=== PATIENT | male | born 1960 | race Caucasian/White ===

== ENCOUNTER 2019-06-05 16:33 | Inpatient (IN) | payer MEDICAID ==
[~2019-06-05] VITALS: Ht 177.8 cm; Wt 99.2 kg
[2019-06-05] MEDS ORDERED: ACETAMINOPHEN500 M1 PO (20:03)
[2019-06-05] MEDS ORDERED: HYDROCODON-ACE1 EAC7 PO (20:04)
[2019-06-05] MEDS ORDERED: LOVENOX30 MG/0.3 SC (20:05)
[2019-06-05] MEDS ORDERED: DULCOLAX5 MG PO (20:05)
[2019-06-05] MEDS ORDERED: SODIUM CL 0.91000 ML IV (20:08)
[2019-06-05] MEDS ORDERED: PEPCID INJ20 MG/2 ML (20:10)
[2019-06-05] MEDS ORDERED: MORPHINE 44 MG/1 M1 IV (20:13)
[2019-06-05] MEDS ORDERED: PROCHLORPERAZ5 MG/M1 IM (20:14)
[2019-06-05] MEDS ORDERED: VANCOMYCIN 500500 MG IV (20:15)
[2019-06-05] MEDS ORDERED: ZOSYN 2.25 GM2.25 G1 IV (20:21)
[2019-06-05] MEDS ORDERED: HYDROCORTISO28.35 G1 TOPICAL (20:28)
[2019-06-05 21:00] VITALS: BP 162/74; BMI 30.9
--- NOTE | 2019-06-05 22:43 | NUR ---
ARRIVE TO FLOOR AT 1915 ON STRETCHER ACCOMPANIED BY EMS AND SISTER. TRANSFERED SELF TO BED. ALERT AND ORIENTED X4. UP AD CLAUDE TO B/R. IV TO LEFT AC SL..SWOLLEN AREA TO RIGHT SIDE OF NECK. STATED "THAT'S WERE THEY PUT MY RADIATION IN. STATES THROAT IS SORE AND HAS A PROBLEM SWALLOWING. PAGED DR. CUNHA AND MARY LOU CASTAÑEDA RETURN CALL AND STATED SHE WOULD NOTIFY DR. CUNHA. NO RETURN CALL FROM DR. CUNHA AT THIS TIME. PT STATES HE IS A DNR. WILL PLACE PAER FROM [facility] IN CHART AND FILL OUT OUR NO CODE PAPER.REQUESTED A SPRITE. LEMON COWLITZ OFFERED AND ACCEPTED. SISTER TO STAY AT BEDSIDE. DENIES ANY NEEDS AT THIS TIME.
[2019-06-06 04:45] VITALS: BP 132/49
[2019-06-06 06:17] LABS: HEMATOCRIT 25.7 % (42.0-54.0); HEMOGLOBIN 9.1 g/dL (13.5-17.5); MCH 30.2 pg (26.0-34.0); MCHC 35.4 g/dL (31.0-37.0); MCV 85.4 fL (80.0-100.0); MEAN PLATELET VOLUME 8.7 fL (7.4-10.4); PLATELET COUNT 193 10x3/uL (130-400); RBC 3.01 10x6/uL (4.20-6.10); RDW 14.4 % (11.5-14.5); WBC 3.6 10x3/uL (4.8-10.8)
[2019-06-06 06:42] LABS: ALBUMIN 2.5 g/dL (3.4-5.0); ANION GAP 14.6 mmol/L (8-16); BILIRUBIN - TOTAL 0.54 mg/dL (0.2-1.3); CALCIUM 7.8 mg/dL (8.5-10.1); CARBON DIOXIDE 24.2 mmol/L (21.0-32.0); MAGNESIUM - SERUM 1.8 mg/dL (1.8-2.4); PHOSPHOROUS 3.3 mg/dL (2.5-4.9); PROTEIN - SERUM 5.6 g/dL (6.4-8.2)
[2019-06-06 06:45] LABS: POTASSIUM - SERUM 2.8 mmol/L (3.5-5.1)
--- NOTE | 2019-06-06 07:48 | NUR ---
REPORT RECEIVED FROM DENTAL HYGIENE PROFESSOR ANDPATIENT CARE ASSUMED. PATIENT SITTING UP IN BED AWAKE, ALERT AND ORIENTED X 4. PATIENT DENIES ANY NEEDS OR PAIN. WILL CONTINUE WITH PLAN OF CARE. FAMILY MEMBER AT BS. SR UP X 2 BED IN LOW POSITION AND CALL LIGHT IN REACH.
[2019-06-06 08:25] LABS: APPEARANCE CLEAR (CLEAR); BILIRUBIN NEGATIVE (NEGATIVE); COLOR YELLOW (YELLOW); GLUCOSE NEGATIVE (NEGATIVE); KETONE NEGATIVE (NEGATIVE); NITRITE NEGATIVE (NEGATIVE); PROTEIN 2+ mg/dL (NEGATIVE); UROBILINOGEN NORMAL (NORMAL)
[2019-06-06 08:26] LABS: BACTERIA FEW /hpf (NEGATIVE); EPITHELIAL CELLS 0-5 /hpf (0-5); RED CELLS - URINE OCC /hpf (0-5); WHITE CELLS - URINE RARE /hpf (NEGATIVE)
--- NOTE | 2019-06-06 08:50 | NUR ---
PER V/O DR CUNHA, STOOL SPECIMEN TO BE TESTED FOR C DIFF REGARDLESS OF CONSISTENCY. SPOKE WITH BENJAMÍN IN LAB.
[2019-06-06 09:23] LABS: % SATURATION 31 % (15-55); IRON 55 ug/dl (35-150); TOTAL IRON BIND CAPACITY 177 ug/dl (260-445); UNSAT IRON BIND CAPACITY 122 ug/dl (150-375)
[2019-06-06 10:15] LABS: FERRITIN 1343 ng/mL (3-244)
[2019-06-06 10:21] VITALS: BP 147/78
[2019-06-06 11:24] LABS: APPEARANCE CLEAR (CLEAR); BACTERIA FEW /hpf (NEGATIVE); BILIRUBIN NEGATIVE (NEGATIVE); COLOR STRAW (YELLOW); EPITHELIAL CELLS OCC /hpf (0-5); GLUCOSE NEGATIVE (NEGATIVE); KETONE NEGATIVE (NEGATIVE); NITRITE NEGATIVE (NEGATIVE); PROTEIN 2+ mg/dL (NEGATIVE); RED CELLS - URINE 0-5 /hpf (0-5); UROBILINOGEN NORMAL (NORMAL); WHITE CELLS - URINE RARE /hpf (NEGATIVE)
[2019-06-06 11:42] LABS: UDS - AMPHET NEGATIVE QUAL (NEGATIVE); UDS - BARB NEGATIVE QUAL (NEGATIVE); UDS - BENZO NEGATIVE QUAL (NEGATIVE); UDS - COCAINE NEGATIVE QUAL (NEGATIVE); UDS - OPIATE NEGATIVE QUAL (NEGATIVE); UDS - PCP NEGATIVE QUAL (NEGATIVE); UDS - THC NEGATIVE QUAL (NEGATIVE)
[2019-06-06 12:01] LABS: ANISOCYTOSIS OCC; HYPOCHROMASIA OCC; LYMPHOCYTES 19 % (15-50); MONOCYTES 22 % (2-11); NEUTROPHILS 58 % (40-80); PLATELET ESTIMATE NORMAL
[2019-06-06 15:11] VITALS: Ht 177.8 cm; Wt 99.2 kg
[2019-06-06 18:22] VITALS: BP 141/72
--- NOTE | 2019-06-06 19:20 | NUR ---
REPORT RECEIVED, WILL CONTINUE POC. PATIENT IS RESTING WITH EYES CLOSED, AT BEDSIDE. NO S/S OF DISTRESS OBSERVED, RR EVEN AND UNLABORED ON ROOM AIR. PIV TO LT AC, SL. SIGNIFICANT SWELLING TO RT SIDE OF NECK NOTED. PATIENT DENIES NEEDS AT THIS TIME. CL IN REACH, BED LOCKED AND LOWERED. CONTACT PRECAUTIONS FOLLOWED. WILL CTM.
[2019-06-07 00:05] VITALS: BP 125/70
[2019-06-07 00:18] VITALS: BP 120/68
[2019-06-07 04:00] VITALS: BP 129/68
--- NOTE | 2019-06-07 04:07 | NUR ---
I have reviewed this patient and I concur with the Shift Assessment completed by the Licensed Practical Nurse today this shift.
[2019-06-07 05:48] LABS: BASOPHILS 0.2 % (0-2); EOSINOPHILS 0.7 % (0-7); HEMATOCRIT 25.1 % (42.0-54.0); HEMOGLOBIN 8.8 g/dL (13.5-17.5); IMMATURE GRANULOCYTES 0.5 % (0-5); LYMPHOCYTES 15.4 % (15-50); MCH 29.9 pg (26.0-34.0); MCHC 35.1 g/dL (31.0-37.0); MCV 85.4 fL (80.0-100.0); MEAN PLATELET VOLUME 8.8 fL (7.4-10.4); MONOCYTES 14.1 % (2-11); NEUTROPHILS 69.1 % (40-80); PLATELET COUNT 173 10x3/uL (130-400); RBC 2.94 10x6/uL (4.20-6.10); RDW 14.4 % (11.5-14.5)
[2019-06-07 05:59] LABS: INR 1.15 (0.85-1.17); PROTIME 14.6 SECONDS (11.6-15.0)
[2019-06-07 06:05] LABS: ANION GAP 13.3 mmol/L (8-16); CALCIUM 8.1 mg/dL (8.5-10.1); CARBON DIOXIDE 23.8 mmol/L (21.0-32.0); CREATININE - SERUM 7.8 mg/dL (0.6-1.3); PHOSPHOROUS 3.5 mg/dL (2.5-4.9); POTASSIUM - SERUM 3.1 mmol/L (3.5-5.1)
--- NOTE | 2019-06-07 06:28 | HP ---
PATIENT: GALLITO WHITE MEDICAL RECORD: [id number] ACCOUNT: [id number] LOCATION:[address] : 58 ADMISSION DATE: 06/05/19 PCP: No PCP HISTORY AND PHYSICAL EXAMINATION DATE: 06/06/2019 HISTORY OF PRESENT ILLNESS: Mr. White is a 59-year-old male who was transferred from [facility] for further evaluation and management of proteinuria in need for kidney biopsy. The patient is very hypersomnolent and his sister gave the history and per the history of the records. The patient has a history of esophageal cancer who has recently undergone chemotherapy, last chemotherapy was this past Tuesday. He also has had some radiation treatments, but did not complete the radiation treatment. The sister reports that at the end of last week, he started having frequent falls, which was new for him as well as dizziness. The patient was transferred after they noted that he had a significant proteinuria, in need of biopsy and he is on continued treatment for Clostridium difficile infectious diarrhea. PAST MEDICAL AND SURGICAL HISTORY: 1. Esophageal cancer, undergoing chemo and radiation treatment. 2. COPD. SOCIAL HISTORY: Discontinued tobacco use. ALLERGIES: None reported. FAMILY HISTORY: Sister has diabetes. Mother had stroke and coronary artery disease. MEDICATIONS: That were listed from the hospital include enoxaparin 30 mg subcutaneous daily, hydrocortisone topical, Pepcid 20 mg IV daily, morphine sulfate p.r.n., vancomycin 125 mg p.o. each every 6 hours, and Zosyn. REVIEW OF SYSTEMS: Obtained by the sister who said he has had about 25-pound weight loss. He has had some diarrhea, but other than the dizziness and the falls, she reported no other problems. She said that he did not go to the hospital or doctors most of his life. PHYSICAL EXAMINATION: VITAL SIGNS: 162/74 blood pressure, pulse ox 97% on room air, 68 pulse, 19 respirations, and temperature 98.2 degrees. GENERAL: He is very hypersomnolent. He does briefly open his eyes. He is breathing comfortably. CHEST: Clear and anterior and posterior cardiac distant tones, regular rate. No murmurs auscultated. EXTREMITIES: Pulses are symmetrical simultaneous 2+. No skin bruising. He has notable area in his neck where he has been receiving radiation and hyperpigmentation. Remaining exam was unremarkable. No significant edema, no cyanosis, no clubbing. LABORATORY DATA: His laboratory and other tests are pending. He has some from the transferring hospital that revealed on 06/04/2019; white cell count 7.6, hemoglobin 14.3, platelet count 342, creatinine was 5.3, potassium 2.7, sodium 136, bicarbonate 28. INR was 1.03. HISTORY AND PHYSICAL [id number] SEPTEMBERGALLITO Review of the charts revealed that he carried a diagnosis of sepsis, hypokalemia, acute kidney injury, volume depletion, and esophageal cancer. He had a renal ultrasound reveals size of the kidneys, right kidney 12 cm, left kidney 11.3 cm and was unremarkable for any hydronephrosis or other finding. The patient, in the hospital course, was receiving Zosyn at the other facility. Procalcitonin was 0.54. ASSESSMENT AND PLAN: 1. Acute kidney injury in the setting of volume depletion and recent chemotherapy for esophageal cancer. 2. Esophageal cancer undergoing chemotherapy and radiation. 3. Hypokalemia. 4. Recent weight loss. 5. DNR with established living will, which was confirmed by the sister. 6. Diarrhea with reported Clostridium difficile colitis, infectious diarrhea. 7. Chronic obstructive pulmonary disease, no longer smoking. 8. Anemia, likely associated with malignancy. RECOMMENDATION: 1. Recheck blood work. Monitor for need for renal biopsy or conservative care. 2. Speech evaluation with his dysphonia and swallowing difficulties with esophageal mass. 3. Determine if there is any other tests to be done. The sister says that it is likely he will need some esophageal surgery with this malignancy. Looking at the results that he had, urine total protein was 246.6 to creatinine ratio was 4.6, urine protein creatinine ratio. 4. In the morning further evaluate if oncology or other records would be available. TRANSINT:[id number] Voice Confirmation ID: [id number] DOCUMENT ID: [id number] STAR CUNHA MD at 0628 CC: GALLITO MITTAL MD [id number] DICTATION DATE: 06/06/19 0025 FIBERGLASS BOAT ASSEMBLY SUPERVISOR: 06/06/[address] [facility] [address] [place] [address]
--- NOTE | 2019-06-07 07:54 | NUR ---
PATIENT REQUESTING BATH THIS AM. UNHOOKED IV TO ASSIST BATCH BLENDER WITH PREPARING FOR A BATH. IV TO THE LEFT AC IS SALINE LOCKED WITH NO REDNESS NOTED. NO O2. BED IS IN LOW POSTITION AND CALL LIGHT IS ON. PATIENT DENIES ANY OTHER NEEDS AT THIS TIME AND OR PAIN
[2019-06-07 09:18] VITALS: BP 152/81
[2019-06-07 13:46] VITALS: BP 147/78
--- NOTE | 2019-06-07 21:00 | NUR ---
PT LYING IN BED RESTING WITH EYES OPEN. NO SIGNS OR SYMPTOMS OF DISTRESS NOTED. RESPIRATIONS EVEN AND UNLABORED. SISTER IS AT BEDSIDE. BOWELL SOUNDS ACTIVE x4. PT HAS NO COMPLAINTS OF PAIN AT THIS TIME. ALERT AND ORIENTED x4. PT HAS REDENED AREA ON NECK. CONTINENT OF BOWELL AND BLADDER. LAST BOWELL MOVEMENT IS UNKNOWN. PT WANTS CLOTHES WASHED. WILLCONTINUE MONITOR.
[2019-06-07 21:02] VITALS: BP 164/84
--- NOTE | 2019-06-07 23:00 | NUR ---
WASHING PT CLOTHES IN REHAB. NO COMPLAINTS AT THIS TIME WILL CONTINUE TO MONITOR
[2019-06-08] VITALS (10 sets, daily range): BP systolic 140–162; BP diastolic 66–91
--- NOTE | 2019-06-08 04:31 | NUR ---
I have reviewed this patient and I concur with the Shift Assessment completed by the Licensed Practical Nurse today this shift.
--- NOTE | 2019-06-08 05:12 | NUR ---
PT CLOTHES ARE DONE WASHING WILL CONTINUE TO MONITOR
[2019-06-08 06:31] LABS: BASOPHILS 0.7 % (0-2); EOSINOPHILS 0.2 % (0-7); HEMATOCRIT 29.4 % (42.0-54.0); HEMOGLOBIN 10.2 g/dL (13.5-17.5); IMMATURE GRANULOCYTES 0.9 % (0-5); LYMPHOCYTES 9.4 % (15-50); MCH 29.3 pg (26.0-34.0); MCHC 34.7 g/dL (31.0-37.0); MCV 84.5 fL (80.0-100.0); MEAN PLATELET VOLUME 8.5 fL (7.4-10.4); MONOCYTES 16.5 % (2-11); NEUTROPHILS 72.3 % (40-80); PLATELET COUNT 146 10x3/uL (130-400); RBC 3.48 10x6/uL (4.20-6.10); RDW 15.3 % (11.5-14.5); WBC 4.2 10x3/uL (4.8-10.8)
[2019-06-08 06:52] LABS: CALCIUM 8.4 mg/dL (8.5-10.1); CARBON DIOXIDE 23.5 mmol/L (21.0-32.0); MAGNESIUM - SERUM 1.9 mg/dL (1.8-2.4); PHOSPHOROUS 4.3 mg/dL (2.5-4.9); POTASSIUM - SERUM 3.5 mmol/L (3.5-5.1)
--- NOTE | 2019-06-08 07:12 | NUR ---
REPORT RECEIVED. WILL CONTINUE WITH POC. PT CURRENTLY LYING SEMI FOWLERS. CALL LIGHT W/I REACH. SISTER AT BEDSIDE. RR EVEN AND UNLABORED ON RA. PT ON ISOLATION FOR C-DIFF. NO S/S OF DISTRESS NOTED. PT DENIES ANY NEEDS. WILL CTM.
--- NOTE | 2019-06-08 10:00 | NUR ---
PT RETURN FROM BIOPSY. PT IS AAO AND DENIES ANY NEEDS. RR EVEN AND UNLABORED ON RA. NO S/S OF DISTRESS NOTED. WILL CTM. VSS AND WNL
--- NOTE | 2019-06-08 15:01 | NUR ---
Nutrition Follow-up: Renal biopsy today. MOLD CARRIER following. Diet: Regular, Soft, vanilla Boost TID Wt: 218.2# (06/07) Labs noted: K+ 3.5, PO4 4.3, Ca 8.4 Meds noted: Floranex, Pepcid -Encourage PO intake. -Monitor wt; noted daily wts ordered. -RD following.
--- NOTE | 2019-06-08 16:03 | MORECARE ---
CASE MANAGEMENT DISCHARGE SUMMARY PATIENT: GALLITO MCNEAL UNIT: [id number] ADM DATE: 06/05/19 AGE: 59 : 58 SEX: M ROOM/BED: D.2135 AUTHOR: ROLO NGUYEN PHYSICIAN: REFERRING PHYSICIAN: STAR CUNHA MD DATE OF SERVICE: 06/08/19 Discharge Plan Patient Name: GALLITO MCNEAL Facility: [facility]:[place] : 1960 Planned Disposition: Home Anticipated Discharge Date: Discharge Date: Expected LOS: Initial Reviewer: [email or web address] Initial Review Date: 06/08/2019 Generated: 06/08/19 5:03 pm Comments DCP- Discharge Planning Updated by [email or web address]: Laura De Oliveira on 06/08/19 3:[address] Patient Name: GALLITO MCNEAL Admission Status: Elective Accout number: [id number] Admission Date: 06-05-2019 : 1960 Admission Diagnosis:ENTEROCOLITIS D/T CLOSTRIDIUM DIFFICILE, NOT SPCF RE Attending: KERRY Current LOS: 3 Anticipated DC Date: Planned Disposition: Home [place]: [place] PRIVATE OPTIONS [place] Discharge Planning Comments: CM MET WITH PATIENT AFTER OBTAINING VERBAL CONSENT. STATES PLANS TO DC TO HOME. STATES JUST FINISHED CHEMO ONE WEEK AGO AND STILL GETTING RADIATION AT [facility], IS HERE FOR NEPHROLOGY. NO NEEDS IDENTIFIED RIGHT NOW, WILL FOLLOW UP WITH HIM CLOSER TO DISCHARGE. STATES DEPENDING ON LABS IN THE MORNING HE MAY GET DAILYSIS. HE IS NOT CURRENTLY A HD PATIENT. CM WILL FOLLOW AND ASSIST NEEDED. Soap Inspector: Laura De Oliveira DCPIA - Discharge Planning Initial Assessment Updated by [email or web address]: Laura De Oliveira on 06/08/19 3:58 pm * Is the patient Alert and Oriented? Yes * PCP ALIZE * Preadmission Environment Home Alone * ADLs Independent * Equipment None * List name and contact numbers for known caregivers / representatives who currently or will assist patient after discharge: SISTER ESQUEDA, * Please name any agencies selected above. CHEMO AND RADIATION AT [facility] * Can the patient safely return to the preadmission environment? Yes * Has this patient been hospitalized within the prior 30 days at any hospital? Yes Patient Name: GALLITO MCNEAL Page 15139 at 1603 All edits/amendments must be made on the electronic document DICTATION DATE: 06/08/191602 MULTIMEDIA MANAGER: REYNA 06/08/191602 RPT#: [id number] DC DATE: STATUS: ADM IN [facility] [address] [place] [address] END OF REPORT
--- NOTE | 2019-06-08 19:46 | NUR ---
LYING IN BED WATCHING TV. ALERT AND ORIENTED x4. SISTER IS AT BEDSIDE. NO COMPLAINTS OF PAIN AT THIS TIME. UP AID CLAUDE. CONTINENT OF BOWELL AND BLDDER. PT STATES LAST BOWELL MOVEMENT WAS TODAY, ABDOMEN IS SOFT TO PALPATION NO SIGNS OR SYMPTOMS OF DISTRESS NOTED. RESPIRATIONS EVEN AND UNLANORED. IS ON ROOM AIR. PT ADVISED TO CALL FOR HELP WHEN GETTING BACK AND FOURTH TO THE BED. CALL LIGHT WITHIN REACH AND BED IN LOWEST POSITION. WILL CONTINUE TO MONITOR.
[2019-06-09] VITALS: BP 149/74
[2019-06-09 04:00] VITALS: BP 161/62
[2019-06-09 06:03] LABS: BASOPHILS 0.2 % (0-2); EOSINOPHILS 0.4 % (0-7); HEMATOCRIT 27.4 % (42.0-54.0); HEMOGLOBIN 9.7 g/dL (13.5-17.5); IMMATURE GRANULOCYTES 0.4 % (0-5); MCH 29.8 pg (26.0-34.0); MCHC 35.4 g/dL (31.0-37.0); MCV 84.3 fL (80.0-100.0); MEAN PLATELET VOLUME 8.5 fL (7.4-10.4); MONOCYTES 18.8 % (2-11); NEUTROPHILS 75.2 % (40-80); PLATELET COUNT 130 10x3/uL (130-400); RBC 3.25 10x6/uL (4.20-6.10); RDW 15.4 % (11.5-14.5); WBC 4.8 10x3/uL (4.8-10.8)
[2019-06-09 06:35] LABS: ANION GAP 16.6 mmol/L (8-16); CALCIUM 8.4 mg/dL (8.5-10.1); CARBON DIOXIDE 24.6 mmol/L (21.0-32.0); CREATININE - SERUM 7.7 mg/dL (0.6-1.3); PHOSPHOROUS 4.4 mg/dL (2.5-4.9); POTASSIUM - SERUM 3.2 mmol/L (3.5-5.1)
--- NOTE | 2019-06-09 07:08 | NUR ---
I have reviewed this patient and I concur with the Shift Assessment completed by the Licensed Practical Nurse today this shift.
--- NOTE | 2019-06-09 07:33 | NUR ---
PT AWAKE AND ORIENTED, UP TO THE BATHROOM WITHOUT ASSIST. SISTER AT BEDSIDE. ANXIOUS FOR KNOWING WHEN THEY'LL GET TO LEAVE. NO COMPLAINTS OR CONCERNS AT THIS TIME. CL INR EACH,S RX2. ALL QUESTIONS ANSWERED TO THE BEST OF MY ABILITY.
[2019-06-09 09:08] VITALS: BP 166/88
[2019-06-09] MEDS ORDERED: AMOX TR-K CLV 475 ML PO (13:05)
[2019-06-09] MEDS ORDERED: FLAGYL500 MG PO (13:11)
--- NOTE | 2019-06-09 13:23 | NUR ---
OFFERED FLU VACCINE. DECLINED DUE TO ON CHEMO.
--- NOTE | 2019-06-09 14:18 | NUR ---
PT ESCORTED OUT VIA WHEELCHAIR TO BROTHERS/[id number] POV. AT SIDE
--- NOTE | 2019-06-09 18:06 | MORECARE ---
CASE MANAGEMENT DISCHARGE SUMMARY PATIENT: GALLITO MCNEAL UNIT: [id number] ADM DATE: 06/05/19 AGE: 59 : 58 SEX: M ROOM/BED: D.3636 AUTHOR: ROLO NGUYEN PHYSICIAN: REFERRING PHYSICIAN: STAR CUNHA MD DATE OF SERVICE: 06/09/19 Discharge Plan Patient Name: GALLITO MCNEAL [facility] [facility] 1960 Planned Disposition: Home Anticipated Discharge Date: Discharge Date: 06/09/2019 Expected LOS: Initial Reviewer: [email or web address] Initial Review Date: 06/08/2019 Generated: 06/09/19 7:05 pm Comments DCP- Discharge Planning Updated by [email or web address]: Laura De Oliveira on 06/08/19 3:[address] Patient Name: GALLITO MCNEAL Admission Status: Elective Accout number: [id number] Admission Date: 06-05-2019 : 1960 Admission Diagnosis:ENTEROCOLITIS D/T CLOSTRIDIUM DIFFICILE, NOT SPCF RE Attending: KERRY Current LOS: 3 Anticipated DC Date: Planned Disposition: Home Primary Insurance: [place] PRIVATE OPTIONS [place] Discharge Planning Comments: CM MET WITH PATIENT AFTER OBTAINING VERBAL CONSENT. STATES PLANS TO DC TO HOME. STATES JUST FINISHED CHEMO ONE WEEK AGO AND STILL GETTING RADIATION AT [facility], IS HERE FOR NEPHROLOGY. NO NEEDS IDENTIFIED RIGHT NOW, WILL FOLLOW UP WITH HIM CLOSER TO DISCHARGE. STATES DEPENDING ON LABS IN THE MORNING HE MAY GET DAILYSIS. HE IS NOT CURRENTLY A HD PATIENT. CM WILL FOLLOW AND ASSIST NEEDED. Audio Director: Laura De Oliveira DCPIA - Discharge Planning Initial Assessment Updated by [id number]: Laura De Oliveira on 06/08/19 3:58 pm * Is the patient Alert and Oriented? Yes * PCP ALIZE * Preadmission Environment Home Alone * ADLs Independent * Equipment None * List name and contact numbers for known caregivers / representatives who currently or will assist patient after discharge: SISTER ESQUEDA, * Please name any agencies selected above. CHEMO AND RADIATION AT [facility] * Can the patient safely return to the preadmission environment? Yes * Has this patient been hospitalized within the prior 30 days at any hospital? Yes Last DP export: 06/08/19 3:03 p Patient Name: GALLITO MCNEAL Page 04710 at 1806 All edits/amendments must be made on the electronic document DICTATION DATE: 06/09/191804 AIRPLANE DISPATCHER: REYNA 06/09/191804 RPT#: [id number] DC DATE:06/09/19 STATUS: DIS IN [facility] [address] [place] [address] END OF REPORT
== END 2019-06-09 14:18 | disposition home or self-care (01) | DRG 371 ==
LOC: D.MS 16:33 → D.M2 19:15
PROVIDERS: Family Medicine; Internal Medicine Nephrology; Specialist; ADMIT Internal Medicine Nephrology; ATTEND Internal Medicine Nephrology
PROC: 0TB03ZX Excision of Right Kidney, Percutaneous Approach, Diagnostic (ICD-10-PCS; principal; 2019-06-08 08:00)
DX: A04.72 Enterocolitis due to Clostridium difficile, not specified as recurrent (principal); E43 Unspecified severe protein-calorie malnutrition; N17.9 Acute kidney failure, unspecified; C15.9 Malignant neoplasm of esophagus, unspecified; E87.6 Hypokalemia; Z66 Do not resuscitate; J44.9 Chronic obstructive pulmonary disease, unspecified; D63.0 Anemia in neoplastic disease; E86.0 Dehydration; G89.4 Chronic pain syndrome; K21.9 Gastro-esophageal reflux disease without esophagitis; Z68.30 Body mass index [BMI] 30.0-30.9, adult